=== PATIENT | female | born 1975 | race African-American/Black ===

== ENCOUNTER 2023-07-03 14:02 | Outpatient (AMB) | payer MEDICAID, SELFPAY ==
[2023-07-03 14:32] VITALS: BP 110/74; PULSE 89; O2SAT 99; BMI 27.3
--- NOTE | 2023-07-03 14:32 | HO.NEPHOV_ITS ---
HPI HPI Comments History of Present Illness Details Dori is a 48-year-old female with a history of TONI following ATN needing renal replacement therapy. Her last hemodialysis was last week of March 2021. She has been having headaches/migraine and has seen neurologist with multiple medication adjustments and minimal improvement. She was also thought to have pseudotumor cerebri and was on Diamox briefly. Her foot wounds have healed. She follows up with vascular surgeon Dr. Dallas in [facility]. She has lost a lot of weight. She is very concerned about her ongoing headaches. She denies chest pain, shortness of breath, vomiting, orthostatic symptoms, pedal edema or urinary symptoms. She avoids nonsteroidal anti-inflammatories and maintains good hydration. Her serum creatinine has been stable. [facility] Medical History (Updated 07/03/23 @ 14:59 by Esau Vaughn MD) History of hemodialysis Acute kidney injury Family History (Updated 07/03/23 @ 14:44 by Gloria Oates) Mother Diabetes Hypertension Social History (Updated 07/03/23 @ 14:42 by Gloria Oates) Alcohol intake: never Patient Tobacco Use Status: Never used Tobacco Vital Signs 07/03/23 14:32 Height 5 ft 5 in Weight 164 lb 2 oz BMI 27.3 BP 110/74 Blood Pressure Location Lt brachial Position Sitting Pulse 89 Pulse Source Pulse Oximeter Pulse Oximetry (%) 99 Oxygen Delivery Method Room Air Physical Exam Vital Signs: Last Vital Signs Pulse 89 07/03/23 14:32 BP 110/74 07/03/23 14:32 Pulse Ox 99 07/03/23 14:32 Oxygen Delivery Method Room Air 07/03/23 14:32 BMI result Body Mass Index 27.3 Const General: comfortable and no acute distress Orientation/consciousness: patient oriented x3 HEENT Head: Yes normocephalic Mouth: Normal oral and palatal mucosa present Eyes EOM: EOMs intact bilaterally Neck Neck: Yes supple Resp Auscultation: clear to auscultation bilaterally Cardio Jugular venous distension: no JVD Rate: regular rate GI Palpation (GI): Soft to palpation Auscultation: normal bowel sounds General: Yes no CVA tenderness Back/Spine/Pelvis Back: no CVA tenderness Skin General skin exam: no rashes or lesions noted Neuro General: patient oriented x3 and moves all extremities Extrem General: Yes no pedal edema Assessment & Plan Assessment & Plan (1) History of hemodialysis: Code(s): Z92.89 - Personal history of other medical treatment Plan Dori has history of tubular injury due to sepsis needing renal replacement therapy for some time. She recovered her renal functions and came off hemodialysis in March 2021. She had renal biopsy at that time which showed ATN. Her last serum creatinine is 1. She maintains good hydration. She avoids nonsteroidal anti-inflammatories. She has not a diabetic. She has known renal dietary restrictions. She is happy about her renal recovery but concerned about her ongoing headaches and wants a 2nd opinion about it. I did not make any medication changes today but addressed all her concerns and questions. She will be following up with me in 1 year with follow-up lab work for continued care. Orders: Orders Electrolytes 07/03/23 Z92.89 - Personal history of other medical treatment Protein Creatinine Ratio, Ur 07/03/23 Z92.89 - Personal history of other medical treatment Blood Urea Nitrogen 07/03/23 Z92.89 - Personal history of other medical treatment Creatinine 07/03/23 Z92.89 - Personal history of other medical treatment Coding Level of Care Code Est Pt Level 3 (09909) Diagnoses History of hemodialysis Z92.89 Results Reviewed Nephrology Results: No Data to Display
== END 2023-07-03 15:02 | disposition home or self-care (01) ==
PROVIDERS: PCP Internal Medicine; Visit Provider Internal Medicine Nephrology
DX: Z92.89 Personal history of other medical treatment (principal)
CPT/HCPCS: 99213

== ENCOUNTER → 2023-07-03 14:02 | Outpatient (BNVA) | payer MEDICAID, SELFPAY | PROVIDERS: PCP Internal Medicine; Visit Provider Internal Medicine Nephrology | DX: Z92.89 Personal history of other medical treatment (principal) | CPT/HCPCS: 99212 ==

== ENCOUNTER 2024-02-26 14:10 | Outpatient (AMB) | payer OTHER, MEDICAID, SELFPAY ==
--- NOTE | 2024-02-26 14:16 | HO.NEPHOV_ITS ---
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 This visit was by [employer] as she has COVID. Her last hemodialysis was last week of March 2021. She has been having headaches/migraine and has seen neurologist with multiple medication adjustments and minimal improvement. She was also thought to have pseudotumor cerebri and was on Diamox briefly. Her foot wounds have healed. She follows up with vascular surgeon Dr. Dallas in [facility]. She has lost a lot of weight. She denies chest pain, shortness of breath, vomiting, orthostatic symptoms, pedal edema or urinary symptoms. She avoids nonsteroidal anti-inflammatories and ma intains good hydration. Her last serum creatinine was 1.[address] [facility] Medical History (Updated 02/26/24 @ 14:40 by Esau Vaughn MD) History of hemodialysis Acute kidney injury Family History Mother Diabetes Hypertension Social History Alcohol intake: never Patient Tobacco Use Status: Never used Tobacco Review of Systems Const All systems reviewed & are unremarkable except as noted in HPI and below Telehealth Telehealth Telehealth Platform: Telephone Location of provider rendering services: practice address Location of patient: address on file Patient Identification confirmed using: Name, : Yes Telehealth method: voice only Patient verbally consented to treatment: Yes Patient verbally consented to billing insurance company: Yes Patient informed of any privacy concerns related to visit: No Minutes spent on Phone/Video with Pt.: 10 Results Reviewed Nephrology Results: No Data to Display Assessment & Plan Assessment & Plan (1) Acute kidney injury superimposed on CKD: Code(s): N17.9 - Acute kidney failure, unspecified; N18.9 - Chronic kidney disease, unspecified Category: Medical (2) History of hemodialysis: Code(s): Z92.89 - Personal history of other medical treatment Category: Medical Plan Dori has history of tubular injury due to sepsis needing renal replacement therapy for some time. She recovered her renal functions and came off hemodialysis in March 2021. She had renal biopsy at that time which showed ATN. Her last serum creatinine is 1.5. She likely had TONI from COVID with resultant rise in serum creatinine from baseline.. She maintains good hydra tion. She avoids nonsteroidal anti-inflammatories. She has not a diabetic. She has known renal dietary restrictions. I did not make any medication changes today but follow-up lab work. She will be following up with me in 3 months for continued care Orders: Orders Electrolytes 2 Months N17.9 - Acute kidney failure, unspecified, N18.9 - Chronic kidney disease, unspecified Creatinine 2 Months N17.9 - Acute kidney failure, unspecified, N18.9 - Chronic kidney disease, unspecified Blood Urea Nitrogen 2 Months N17.9 - Acute kidney failure, unspecified, N18.9 - Chronic kidney disease, unspecified Complete Blood Count Auto Diff 2 Months N17.9 - Acute kidney failure, unspecified, N18.9 - Chronic kidney disease, unspecified Coding Level of Care Code Tele Est Pt Level 4 (96101) Diagnoses Acute kidney injury superimposed on CKD N17.9; N18.9 History of hemodialysis Z92.89
== END 2024-02-26 15:05 | disposition home or self-care (01) ==
PROVIDERS: PCP Internal Medicine; Visit Provider Internal Medicine Nephrology
DX: N17.9 Acute kidney failure, unspecified (principal); N18.9 Chronic kidney disease, unspecified; Z92.89 Personal history of other medical treatment
CPT/HCPCS: 99441

== ENCOUNTER → 2024-02-26 14:10 | Outpatient (BNVA) | payer MEDICARE, OTHER, MEDICAID, SELFPAY | PROVIDERS: PCP Internal Medicine; Visit Provider Internal Medicine Nephrology ==

== ENCOUNTER 2024-05-27 14:01 | Outpatient (AMB) | payer MEDICARE, OTHER, MEDICAID, SELFPAY ==
--- NOTE | 2024-05-27 14:09 | HO.NEPHOV_ITS ---
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 This visit was by [employer] as she has COVID. Her last hemodialysis was last week of March 2021. She has been having headaches/migraine and has seen neurologist with multiple medication adjustments and minimal improvement. She was also thought to have pseudotumor cerebri and was on Diamox briefly. Her foot wounds have healed. She follows up with vascular surgeon Dr. Dallas in [facility]. She has lost a lot of weight. She denies chest pain, shortness of breath, vomiting, orthostatic symptoms, pedal edema or urinary symptoms. She avoids nonsteroidal anti-inflammatories and maintains good hydration. Her last serum creatinine had gone upto 1.5 recently but settled to baseline now [facility] Medical History (Updated 02/26/24 @ 14:40 by Esau Vaughn MD) History of hemodialysis Acute kidney injury Family History Mother Diabetes Hypertension Social History Alcohol intake: never Patient Tobacco Use Status: Never used Tobacco Review of Systems Const All systems reviewed & are unremarkable except as noted in HPI and below Telehealth Telehealth Telehealth Platform: Telephone Location of provider rendering services: practice address Location of patient: address on file Patient Identification confirmed using: Name, : Yes Telehealth method: voice only Patient verbally consented to treatment: Yes Patient verbally consented to billing insurance company: Yes Patient informed of any privacy concerns related to visit: No Minutes spent on Phone/Video with Pt.: 10 Results Reviewed Nephrology Results: No Data to Display Assessment & Plan Assessment & Plan (1) History of hemodialysis: Code(s): Z92.89 - Personal history of other medical treatment Category: Medical (2) Acute kidney injury superimposed on CKD: Code(s): N17.9 - Acute kidney failure, unspecified; N18.9 - Chronic kidney disease, unspecified Category: Medical Plan Zela has history of tubular injury due to sepsis needing renal replacement therapy for some time. She recovered her renal functions and came off hemodialysis in March 2021. She had renal biopsy at that time which showed ATN. She recently had a serum creatinine of 1.5 which is back to baseline now. She maintains good hydration. She avoids nonsteroidal anti-inflammatories. She has not a diabetic. She has no renal dietary restrictions. I did not make any medication changes today but follow-up lab work. She will be following up with me in one year for continued care Orders: Orders Protein Creatinine Ratio, Ur 1 Year Z92.89 - Personal history of other medical treatment Electrolytes 1 Year Z92.89 - Personal history of other medical treatment Blood Urea Nitrogen 1 Year Z92.89 - Personal history of other medical treatment Creatinine 1 Year Z92.89 - Personal history of other medical treatment Coding Level of Care Code Est Pt Level 4 (70316) Diagnoses History of hemodialysis Z92.89 Acute kidney injury superimposed on CKD N17.9; N18.9
== END 2024-05-27 14:38 | disposition home or self-care (01) ==
PROVIDERS: PCP Internal Medicine; Visit Provider Internal Medicine Nephrology
DX: Z92.89 Personal history of other medical treatment (principal); N17.9 Acute kidney failure, unspecified; N18.9 Chronic kidney disease, unspecified
CPT/HCPCS: 99214

== ENCOUNTER → 2024-05-27 14:01 | Outpatient (BNVA) | payer MEDICARE, OTHER, MEDICAID, SELFPAY | PROVIDERS: PCP Internal Medicine; Visit Provider Internal Medicine Nephrology | DX: N17.9 Acute kidney failure, unspecified (principal); N18.9 Chronic kidney disease, unspecified; Z92.89 Personal history of other medical treatment | CPT/HCPCS: 99212 ==

== ENCOUNTER 2024-12-23 15:34 | Outpatient (AMB) | payer MEDICARE, SELFPAY ==
--- OUTSIDE RECORDS SUMMARY | 2024-12-23 15:38 | XMS_ITS ---
Author Name Deandra Hurtado NP Address [address] [place] [address] Phone [phone] [facility] Care Team Providers Care Staff Home Therapy Rn Name Role Phone Deandra Hurtado Unavailable [phone] Unavailable Unavailable Unavailable Orders, [facility] Unavailable [phone] OLGA NOLAN Unavailable [phone] Reason for Referral Not Available Allergies, adverse reactions, alerts No known allergies History of medication use Medication Class Instructions Start Date End Date Naratriptan 2.5 mg Tab TAKE 1 TABLET BY MOUTH DAILY NEEDED FOR MIGRAINE HEADACHE. MAY REPEAT DOSE 1 TIME IN 4 HOURS 2023-05-06 No Data Available Dntdaylfif-PKRB-Igoayjll 50/325/40 mg Tab TAKE 1 TABLET BY MOUTH EVERY 6 HOURS NEEDED FOR MIGRAINE 2023-02-28 No Data Available Cyclobenzaprine 10 mg Tab TAKE 1 TABLET BY MOUTH EVERY 8 HOURS NEEDED 2022-08-16 No Data Available Diclofenac Sodium 1 % Gel APPLY TOPICALL Y FOUR TIMES DAILY NEEDED FOR SEVERE PAIN NOT TO EXCEED 16 GRAMS/ DAY/SINGLE JOINT OF LOWER EXTREMETIES 2022-09-05 No Data Available Eszopiclone 3 mg Tab TAKE 1 TABLET BY MO UTH AT BEDTIME NEEDED FOR INSOMNIA 2022-12-09 No Data Available Gabapentin 300 mg Cap TAKE 1 CAPSULE BY MOUTH THREE TIMES DAILY 2023-01-20 No Data Available Amoxicillin-Pot Clavulanate 875/125 mg Tab TAKE 1 TABLET BY MOUTH EVERY 12 HOURS FOR 7 DAYS 2023-06-04 No Data Available Docusate Sodium 100 mg Cap TAKE 1 CAPSUL E BY MOUTH TWICE DAILY NEEDED CONSTIPATION 2023-06-04 No Data Available acetaZOLAMIDE 250 mg Tab TAKE 1 TABLET B Y MOUTH TWICE DAILY 2022-11-12 No Data Available Folic Acid 1 mg Tab TAKE 1 TABLET BY CHRIS TH DAILY 2022-11-12 No Data Available Pantoprazole Sodium 40 mg Ta b delayed rel TAKE 1 TABLET BY MOUTH DAILY 2022-11-12 No Data Available levETIRAcetam 1000 mg Tab TAKE 1 TABLET BY MOUTH TWICE DAILY 2022-09-13 No Data Available Cetirizine 10 mg Tab TAKE 1 TABLET BY MO UTH DAILY 2023-01-07 No Data Available Chlorhexidine Gluconate 0.12 % Solution SWISH AND SPIT A CAPFUL BY MOUTH 3-4 TIMES A DAY A MOUTHWASH DO NOT SWALLOW 2023-06-26 No Data Available Nystatin 041059 UNIT/GM Crm APPLY TOPICA LLY TO THE AFFECTED AREA TWICE DAILY 2023-02-03 No Data Available Spiriva Respimat 1.25 MCG/AC T Aerosol Solution INHALE 2 INHALATIONS BY MOUTH EVERY DAY 2022-12-09 No Data Available Topiramate 200 mg Tab TAKE 1 TABLET BY M OUTH TWICE DAILY 2022-08-16 No Data Available Albuterol Sulfate HFA 108 (9 0 Base) MCG/ACT Aerosol Solution INHALE 2 PUFFS BY MOUTH EVERY 6 HOURS NEEDED 2023-08-25 No Data Available Senna 8.6 mg Tab TAKE 1 TABLET BY CHRIS TH AT BEDTIME NEEDED FOR CONSTIPATION 2023-06-04 No Data Available Cyclobenzaprine 10 mg Tab 1 tablet orall y TID PRN muscle spasm 2023-10-28 No Data Available Chlorhexidine Gluconate 0.12 % Solution Mouth/Throat 15 ML swish and spit daily 2023-10-28 No Data Seema ilable Fioricet 50/300/40 mg Cap 1-2 capsules o rally 3 times per day every 4 hours as needed max 6 tabs QD 2023-10-28 No Data Available Diclofenac Sodium 1 % Gel 4 grams topica lly to affected area 4 times per day PRN 2023-10-28 No Data Available Nystatin 738736 UNIT/GM Crm 1 applicatio n topically to affected area PRN 2023-10-28 No Data Available Ibuprofen 200 mg Tab 1-2 tabs every 8 ho urs prn pain 2023-12-03 No Data Available Problem List Problem Status Onset Date Resolved Date Synopsis Seizure disorder Active 2023-10-27 N/A Chiqui & Giwitching neurologist due to insurance change, last visit 3 months. Usually every 3 months see is seen. June 2023 last seizureHas grand mal seziures Pseudotumor cerebri Active 2023-10-27 N/A Aceta zolamideFollows with neuro & ophthalmology (annually)Controls weight Migraine Active 2023-10-27 N/A Topirimate, [place] N fiorcet, PRN naratriptanFollows with neurologyMigraines occur daily- aura- front part of head feels like a knot/pressure. 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 N/A Follows with hem atology- 2x yearly PCP also follows Left ovarian cyst Active 2023-10-28 N/A Is bein g monitored Hyperthyroidism Active 2023-10-28 N/A Fluctuate s between hyper and hypo thryoid Monitoring with labworkPer patient it is uncertain what is happening with her thyroid PVD (peripheral vascular disease) Active 2023-10-28 N/A Follows with vas cular History of DVT (deep vein thrombosis) Active 2023-10-28 N/A Has been on etienne enox previously Is not taking any anticoagulants currently Neuropathy Active 2023-10-28 N/A Of left footTa kes gabapentin Causes issues with walking and has contributed to fall Occasionally skin breaks open. GERD (gastroesophageal reflux disease) Active 2023-10-28 N/A Taking PPIRecomm end medication compliance. Measures to improve GERD management like avoiding large meals. Avoid food triggers to include spicy/acidic foods, fried foods, alcohol, caffeine, peppermint, and chocolate. CKD (chronic kidney disease) stage 2, GFR 60-89 Active 2023-10-27 N/A TONI following AT N needing HD until last week of March 2021 Follows with nephrology 3x yearly Last GFR found 63 in 2022, lowest found was 9 History of falling Active 2023-10-28 N/A Left f oot numb- fall riskRecommend measures to reduce falls. Use ambulatory aid if indicated. Change positions slowly. Avoid low lit rooms and remove potential trip hazards. Constipation Active 2023-10-28 N/A Senna & docu sateRecommend adequate dietary fiber and water intake Other problems related to medical facilities and other health care Active 2023-10-28 N/A CONTING ENCY PLAN FALLMember to call for the following symptoms: Fall / Feeling weak Planned intervention: Encourage extra fluid intake / Assess for change in mental status and provide reassurance if none (patient's Baseline is A&Ox3) / Review importance of sitting for two to three minutes prior to standing after laying down acquired Amputation of toe of left foot Active 2023-10-28 N/A 4th & 5th toes auto-amputated themselves Uncertain of reason- believes autoimmune hemolytic anemia played a cause. Foot turned black and toes fell off. Follows with vascular- 3x yearly De Quervain's tenosynovitis, left Active 2023-12-03 N/A please apply small amount of diclofenac to the area qid, you can take Ibuprofen 1 tab every 8 hoursrests your hand today , use a brace when you receive itapply ice for 20 min and then a warm compress for 20 min throughout the day Encounters Encounters Type Facility Date of Service Diagnosis/Co mplaint New patient,40-59min; chronic exacerbation, 2 stable chronic or 1 acute illness add add modifier 95 for video (do not use for phone, instead use [id number]) [facility] ([place]) 10[place]28/2023 Epilepsy, unspecified, not intractable, without status epilepticusChronic kidney disease, stage 2 (mild)Migraine, unspecified, not intractable, without status migrainosusBenign intracranial hypertensionUnspecified asthma, uncomplicatedPolyneuropathy, unspecifiedAutoimmune hemolytic anemia, unspecifiedUnspecified ovarian cyst, left sideThyrotoxicosis, unspecified without thyrotoxic crisis or stormPeripheral vascular disease, unspecifiedPersonal history of other venous thrombosis and embolismHistory of fallingOther problems related to medical facilities and other health careAcquired absence of other left toe(s)Constipation, unspecifiedGastro-esophageal reflux disease without esophagitis New patient,40-59min; chronic exacerbation, 2 stable chronic or 1 acute illness add add modifier 95 for video (do not use for phone, instead use [id number]) [facility], ([place]) 10/28/2023 New patient,40-59min; chronic exacerbation, 2 stable chronic or 1 acute illness add add modifier 95 for video (do not use for phone, instead use [id number]) [facility] [place] 10[place]28/20[place] New patient,40-59min; chronic exacerbation, 2 stable chronic or 1 acute illness add add modifier 95 for video (do not use for phone, instead use [id number]) [facility] [place]28/20[place] New patient,40-59min; chronic exacerbation, 2 stable chronic or 1 acute illness add add modifier 95 for video (do not use for phone, instead use [id number]) [facility] [place] 10[place]28/2023 New patient,40-59min; chronic exacerbation, 2 stable chronic or 1 acute illness add add modifier 95 for video (do not use for phone, instead use [id number]) [facility] [place] 10[place]28/20[place] New patient,40-59min; chronic exacerbation, 2 stable chronic or 1 acute illness add add modifier 95 for video (do not use for phone, instead use [id number]) [facility] [place] New patient,40-59min; chronic exacerbation, 2 stable chronic or 1 acute illness add add modifier 95 for video (do not use for phone, instead use [id number]) [facility] [place] 10[place]28/2023 No Data Available [facility] [place] 12[place]03/2023 Epilepsy, unspecified, not intractable, without status epilepticusChronic kidney disease, stage 2 (mild)Migraine, unspecified, not intractable, without status migrainosusBenign intracranial hypertensionUnspecified asthma, uncomplicatedPolyneuropathy, unspecifiedAutoimmune hemolytic anemia, unspecifiedUnspecified ovarian cyst, left sideThyrotoxicosis, unspecified without thyrotoxic crisis or stormPeripheral vascular disease, unspecifiedPersonal history of other venous thrombosis and embolismHistory of fallingConstipation, unspecifiedRadial styloid tenosynovitis [de quervain] No Data Available [facility] ([place]) 12/03/2023 No Data Available [facility] ([place] 12/03/2023 No Data Available [facility] ([place]) 12/03/2023 No Data Available [facility] ([place]) 12/03/2023 Vital Signs Date of Collection Vitals 2023-10-28 09:57:48 Height - 165.1 cmWei ght - 68.04 kgBody Mass Index (BMI) - 24.96 kg/m2Pain Scale - 8.0 {score} 2023-12-03 06:11:43 Weight - 68.95 kgBod y Mass Index (BMI) - 25.29 kg/m2Pain Scale - 5.0 {score} Social History Social History Social History Observation Description Effec tive Time Current Smoking Status Never smoker 2024-12-14 0 Sex Female History of Procedures Procedures Service Procedure code Service date Servicing provider Phone# New patient,40-59min; chronic exacerbation, 2 stable chronic or 1 acute illness add add modifier 95 for video (do not use for phone, instead use [id number]) 04895 2023-10-28 No Data Available No Data Availa ble Medication List Documented (1159F) 1159F 2023-10-28 No Data Available No Data Seema ilable Medication Review by prescribing provider or pharmacist documented (1160F) 1160F 2023-10-28 No Data Available No Data Seema ilable Advance Care Directive Advance care planning discussion documented in the medical record (1158F) 1158F 2023-10-28 No Data Available No Data Availa ble BMI obtained (3008F) 3008F 2023-10-28 No Data Availab le No Data Available Advance care planning discussed and documented advance care plan or surrogate decision-maker was documented in the medical record. (1123F) 1123F 2023-10-28 No Data Available No Data Availa ble Pain Assessment - Pain Documented on a Pain Scale (1125F) 1125F 2023-10-28 No Data Available No Data Seema ilable Functional Status Assessed (1170F) 1170F 2023-10-28 No Data Available No Data Avail able No Data Available 11697 2023-12-03 No Data Available No Data Available Pain Assessment - Pain Documented on a Pain Scale (1125F) 1125F 2023-12-03 No Data Available No Data Seema ilable Medication List Documented (1159F) 1159F 2023-12-03 No Data Available No Data Seema ilable Functional Status Assessed (1170F) 1170F 2023-12-03 No Data Available No Data Avail able BMI obtained (3008F) 3008F 2023-12-03 No Data Availab le No Data Available Functional Status Functional Category Effective Dates Cognition Status: Oriented to Person, Pl toby and Time 2023-10-28 ADL: Bathing Needs Assistanc e , Dressing Independent , Eating Independent , Ambulation Independent , Transferring Independent and Toileting Independent 2023-10-28 IADL: Medication Independent , Meal Prep Needs Assistance , Shopping Needs Assistance , Driving or Public Transport Needs Assistance and Housework Needs Assistance 2023-10-28 Falls in last 6 Months: Yes x 2 Mental Status Status Date Cognition Status: Oriented to Person, Pl toby and Time 2023-10-28 Assessments Date of Service Assessments 2023-10-28 09:57:48 Other problems relat ed to medical facilities and other health careSeizure disorderCKD (chronic kidney disease) stage 2, GFR 60-89MigrainePseudotumor cerebriAsthmaAmputation of toe of left footNeuropathyAutoimmune hemolytic anemiaLeft ovarian cystHyperthyroidismPVD (peripheral vascular disease)History of DVT (deep vein thrombosis)History of fallingConstipationGERD (gastroesophageal reflux disease) 2023-12-03 06:11:43 Other problems relat ed to medical facilities and other health careSeizure disorderCKD (chronic kidney disease) stage 2, GFR 60-89MigrainePseudotumor cerebriAsthmaacquired Amputation of toe of left footNeuropathyAutoimmune hemolytic anemiaLeft ovarian cystHyperthyroidismPVD (peripheral vascular disease)History of DVT (deep vein thrombosis)History of fallingConstipationGERD (gastroesophageal reflux disease)De Quervain's tenosynovitis, left Plan of Care Date of Service Plans 2023-10-28 09:57:48 Medication Review by prescribing provider or pharmacist documented (1160F)Medication List Documented (1159F)Functional Status Assessed (1170F)Advance Care Directive Advance care planning discussion documented in the medical record (1158F)BMI obtained (3008F)Pain Assessment - Pain Documented (1125F)Televideo new patient,40-59min; chronic exacerbation, 2 stable chronic or 1 acute illness add modifier 95Advance care planning discussed and documented advance care plan or surrogate decision-maker was documented in the medical record. (1123F)Continue to see PCP. Follow-up with [facility] as needed for any acute or disease education needs that may arise. At least 50% of time spent counseling patient, discussing diagnosis, treatment plan, compliance, and coordinating followup care. Continue taking medications as directed and keep all follow up appointments with established PCP and any specialists.CONTINGENCY PLAN FALLMember to call for the following symptoms: Fall / Feeling weak Planned intervention: Encourage extra fluid intake / Assess for change in mental status and provide reassurance if none (patient's Baseline is A&Ox3) / Review importance of sitting for two to three minutes prior to standing after laying downKeppra & topirimateSwitching neurologist due to insurance change, last visit 3 months. Usually every 3 months see is seen. June 2023 last seizureHas grand mal seziuresAKI following [facility] needing HD until last week of March 2021 Follows with nephrology 3x yearly Last GFR found 63 in 2022, lowest found was 9Topirimate, PRN fiorcet, PRN naratriptanFollows with neurologyMigraines occur daily- aura- front part of head feels like a knot/pressure.AcetazolamideFollows with neuro & ophthalmology (annually)Controls weightSpiriva daily, albuterol PRNClaritinUsually using albuterol 2-3 times daily during October & November due to allergens PCP followingAvoid allergens as utzi7xp & 5th toes auto-amputated themselves Uncertain of reason- believes autoimmune hemolytic anemia played a cause. Foot turned black and toes fell off. Follows with vascular- 3x yearlyOf left footTakes gabapentin Causes issues with walking and has contributed to fall Occasionally skin breaks open.Follows with hematology- 2x yearly PCP also followsIs being monitoredFluctuates between hyper and hypo thryoid Monitoring with labworkPer patient it is uncertain what is happening with her thyroidFollows with vascularHas been on lovenox previously Is not taking any anticoagulants currentlyLeft foot numb- fall riskRecommend measures to reduce falls. Use ambulatory aid if indicated. Change positions slowly. Avoid low lit rooms and remove potential trip hazards.Senna & docusateRecommend adequate dietary fiber and water intakeTaking PPIRecommend medication compliance. Measures to improve GERD management like avoiding large meals. Avoid food triggers to include spicy/acidic foods, fried foods, alcohol, caffeine, peppermint, and chocolate. 2023-12-03 06:11:43 Phone (patient, pare nt, or guardian); 5-10 minutes of medical discussion (no modifier 95)Continue to see PCP. Follow-up with [facility] as needed for any acute or disease education needs that may arise 06/01.CONTINGENCY PLAN FALLMember to call for the following symptoms: Fall / Feeling weak Planned intervention: Encourage extra fluid intake / Assess for change in mental status and provide reassurance if none (patient's Baseline is A&Ox3) / Review importance of sitting for two to three minutes prior to standing after laying downKeppra & topirimateSwitching neurologist due to insurance change, last visit 3 months. Usually every 3 months see is seen. June 2023 last seizureHas grand mal seziuresAKI following [facility] needing HD until last week of March 2021 Follows with nephrology 3x yearly Last GFR found 63 in 2022, lowest found was 9Topirimate, PRN fiorcet, PRN naratriptanFollows with neurologyMigraines occur daily- aura- front part of head feels like a knot/pressure.AcetazolamideFollows with neuro & ophthalmology (annually)Controls weightSpiriva daily, albuterol PRNClaritinUsually using albuterol 2-3 times daily during October & November due to allergens PCP followingAvoid allergens as [id number] & 5th toes auto-amputated themselves Uncertain of reason- believes autoimmune hemolytic anemia played a cause. Foot turned black and toes fell off. Follows with vascular- 3x yearlyOf left footTakes gabapentin Causes issues with walking and has contributed to fall Occasionally skin breaks open.Follows with hematology- 2x yearly PCP also followsIs being monitoredFluctuates between hyper and hypo thryoid Monitoring with labworkPer patient it is uncertain what is happening with her thyroidFollows with vascularHas been on lovenox previously Is not taking any anticoagulants currentlyLeft foot numb- fall riskRecommend measures to reduce falls. Use ambulatory aid if indicated. Change positions slowly. Avoid low lit rooms and remove potential trip hazards.Senna & docusateRecommend adequate dietary fiber and water intakeTaking PPIRecommend medication compliance. Measures to improve GERD management like avoiding large meals. Avoid food triggers to include spicy/acidic foods, fried foods, alcohol, caffeine, peppermint, and chocolate.please apply small amount of diclofenac to the area qid, you can take Ibuprofen 1 tab every 8 hoursrests your hand today , use a brace when you receive itapply ice for 20 min and then a warm compress for 20 min throughout the day Health Concerns Date Concern 2023-12-03 Visit completed via audio by telephone. Patient/Guardian agreed to visit via telehealth.Time spent in visit: 9 min 2023-12-03 Today, patient has c hief complaint of: left hand pain thumb toSummary of acute complaint: pt reports pain left thumb to writs aching, shooting pain with some numbness. 2023-12-03 Most recent hospital stay(s) or ER visit(s) and precipitating factors: denies er visit
--- OUTSIDE RECORDS SUMMARY | 2024-12-23 15:38 | XMS_ITS | Encounter Summary ---
Author Organization [facility] Address [address] [place] [address] Care Team Providers Care Director Market Research Name Role Phone Consuelo Sousa MD Primary Care Provider [phone] Encounter Details Date Type Department Care Team (Late st Contact Info) Description 01/11/2020 Scanned Document [facility] [address] [facility] [address] [place] [address] Provider, Chun, [address] [place] [id number] Social History Tobacco Use Types Packs/Day Years Used Date Smoking Tobacco: Never Smokeless Tobacco: Never Alcohol Use Standard Drinks/Week Comments No 0 (1 standard drink = 0.6 oz pur e alcohol) AUDIT-C Answer Date Recorded Frequency of Alcohol Consumption Never 01/26/2018 Average Number of Drinks Not on file 018 Frequency of Binge Drinking Not on file 01/14 Comments No Sex and Gender Information Value Date Recorded Sex Assigned at Not on file Legal Sex Female 3:54 PM EDT Gender Identity Not on file Sexual Orientation Not on file COVID-19 Exposure Response Date Recorded In the last month, have you been in contact with someone who was confirmed or suspected to have Coronavirus / COVID-19? No / Unsure 01/10/2020 3:11 PM EDT documented as of this encounter Plan of Treatment Not on file documented as of this encounter Visit Diagnoses Not on filedocumented in this encounter Care Teams Director Market Research Relationship Specialty Start Date End Date Consuelo Sousa MD [address] [address] PCP - General Family Medicine 01/26/18 documented as of this encounter
--- OUTSIDE RECORDS SUMMARY | 2024-12-23 15:38 | XMS_ITS | Clinical Summary ---
Author Organization [facility] Address [address] [place] [address] Care Team Providers Care Medicaid Service Coordinator Name Role Phone Consuelo Sousa MD Primary Care Provider [phone] Allergies No known active allergies Medications Medication Sig Dispensed Refills Start Date End Date Status topiramate (TOPAMAX) 200 MG tablet Take 200 mg by mouth 2 (two) times a day. 0 Active ALBUTEROL SULFATE IN Inhale into the lungs continuous prn. 0 Active folic acid (FOLVITE) tablet 1 mg Take 1 tablet (1 mg total) by mouth daily. 30 tablet 0 03/02/2021 Active levETIRAcetam (KEPPRA) 1000 MG tablet Take 1 tablet (1,000 mg total) by mouth every evening. 60 tablet 0 03/02/2021 Active melatonin 3 MG TABS tablet Take 1 tablet (3 mg total) by mouth every night at bedtime. 30 tablet 0 03/02/2021 Active Multiple Vitamins-Minerals (Thera M Plus) TABS tablet Take 1 tablet by mouth daily. 30 tablet 0 03/02/2021 Active pantoprazole (PROTONIX) 40 MG tablet Take 1 tablet (40 mg total) by mouth every morning on an empty stomach. 30 tablet 0 03/03/2021 Active vitamin D3 (VITAMIN D3) 10 MCG (400 UNIT) tablet Take 1 tablet (400 Units total) by mouth daily. 150 tablet 0 03/02/2021 Active senna (SENOKOT) 8.6 MG tablet Take 1 tablet by mouth 2 (two) times a day. 14 tablet 0 03/05/2021 Active polyethylene glycol (MIRALAX) 17 g packet Take 17 g by mouth daily. 14 each 0 03/05/2021 Active HYDROmorphone (DILAUDID) 4 MG tablet 0 04/08/2021 Active fluticasone (FLOVENT DISKUS) 50 MCG/BLIST diskus inhaler Inhale 1 puff into the lungs. 0 Active docusate sodium (COLACE) 100 MG capsule 0 03/22/2021 Active gabapentin (NEURONTIN) 300 MG capsule Take 300 mg by mouth 3 (three) times a day. 0 06/19/2021 Active butalbital-aspirin- caffeine (FIORINAL) 50-325-40 MG capsule Take 1 capsule by mouth every 4 (four) hours as needed for migraine. 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 Hyperkalemia 03/24/2021 Acute renal failure syndrome 03/24/2021 Shock 02/18/2021 TONI (acute kidney injury) 02/17/2021 Morbid obesity 04/13/2020 Social History Tobacco Use Types Packs/Day Years Used Date Smoking Tobacco: Never Smokeless Tobacco: Never Alcohol Use Standard Drinks/Week Comments No 0 (1 standard drink = 0.6 oz pur e alcohol) Sex and Gender Information Value Date Recorded Sex Assigned at Female 04/12/2020 1:51 PM EDT Gender Identity Not on file Sexual Orientation Not on file Job Start Date Occupation Industry Not on file Not on file Not on file Last Filed Vital Signs Vital Sign Reading Time Taken Comments Blood Pressure 129/84 09/20/2021 1:41 PM EDT Pulse 77 09/20/2021 1:41 PM EDT Temperature 36.2 C (97.1 F) 09/20/2021 1:41 PM EDT Respiratory Rate 17 07/09/2021 2:11 PM EST Oxygen Saturation 100% 09/20/2021 1:41 PM EDT Inhaled Oxygen Concentration - - Weight 79.4 kg (175 lb) 09/20/2021 1:41 PM EDT Height 167.6 cm (5' 6 ) 09/20/2021 1:41 PM EDT Body Mass Index 28.25 09/20/2021 1:41 PM EDT Plan of Treatment Health Maintenance Due Date Last Done Comments Hepatitis B Vaccines (1 of 3 - 3-dose series) 1975 Depression Screening 1987 Preventative Health Evaluation 1993 Cervical Cancer Screening (Pap Smear) 02/08/1996 DTap / Tdap / Td (2 - Td or Tdap) 02/16/2018 02/17/2008 Colon Cancer Screening (Colonoscopy) 02/08/2020 BMI Counseling 07/09/2022 07/09/2021, 06/16, 06/11/2021, Additional history exists COVID-19 Vaccine ( season) 2024 09/22/2020, 09/01/2020 Influenza Vaccine (#1) 2025 05/09/2012 Pneumococcal Vaccine Aged Out 05/09/2012 No long er eligible based on patient's age to complete this topic Hepatitis C Screening Completed 02/21/2021, 021 RSV Ped < 20 months Aged Out No longe r eligible based on patient's age to complete this topic Advance Directives For more information, please contact: [phone] Latest Code Status on File Code Status Date Activated Date Inactivated Comments Full Code 02/17/2021 7:15 AM 03/07/2021 2:26 AM This c ode status was ascertained in the following way: discussion with next-of-kin, specifically I spoke to the patient's parent . Code Status History Code Status Date Activated Date Inactivated Comments Full Code 04/12/2020 5:02 PM 04/15/2020 10:56 PM Th is code status was ascertained in the following way: discussion with patient . Care Teams Medicaid Service Coordinator Relationship Specialty Start Date End Date Consuelo Sousa MD [address] [place] [id number] PCP - General Internal Medicine 11/19/21
--- OUTSIDE RECORDS SUMMARY | 2024-12-23 15:38 | XMS_ITS | Data Portability ---
Author Organization [facility], [address] Address [address] [place] [address] Assessment No assessment recorded. Plan of Treatment Reminders Order Date Submit Date Provider Last Modified By Organization Details Last Modified Time Details Appointments None record ed. Lab None record ed. Referral None record ed. Procedures None record ed. Surgeries None record ed. Imaging None record ed. Medication Orders None record ed. Patient TargetsNo targets recorded. Patient InstructionsNo instructions recorded. Reason for Referral None Reported. Medical Equipment None Reported. Medications Name Sig Start Date Stop Date Status Note LastModified by Organization Details LastModified Time diclofenac 3% / baclofen 2% / gabapentin 6% / bupivacaine hcl 1% APPLY 1-3 GRAMS TO THE AFFECTED AREA 3-4 TIMES DAILY (RIGHT FOOT) active Not Available Not Available No t Available cyclobenzapr ine 10 mg tablet TAKE 1 TABLET BY MOUTH EVERY 8 HOURS NEEDED active Not Available Not Available No t Available prednisone 10 mg tablet TAKE 2 TABLET BY MOUTH TWICE DAILY DIRECTED active Not Available Not Available No t Available cetirizine 10 mg tablet TAKE 1 TABLET BY MOUTH EVERY DAY active Not Available Not Available No t Available fluconazole 150 mg tablet TAKE 1 TABLET BY MOUTH ONCE active Not Available Not Available N ot Available prednisone 5 mg tablet TAKE 1 TABLET BY MOUTH EVERY DAY active Not Available Not Available No t Available acetazolamid e 250 mg tablet TAKE 1 TABLET BY MOUTH TWICE DAILY active Not Available Not Available No t Available penicillin V potassium 500 mg tablet TAKE 1 TABLET BY MOUTH EVERY 12 HOURS FOR 10 DAYS active Not Available Not Available Not Available melatonin 3 mg tablet TAKE 1 TABLET BY MOUTH AT BEDTIME FOR 30 DAYS active Not Available Not Available No t Available butalbital-a cetaminophen -caffeine 50 mg-325 mg-40 mg tablet TAKE 1 TABLET BY MOUTH EVERY 6 HOURS FOR 30 DAYS active Not Available Not Available No t Available hydromorphon e 2 mg tablet TAKE 2 TABLETS BY MOUTH EVERY 4 HOURS NEEDED FOR PAIN active Not Available Not Available No t Available docusate sodium 100 mg capsule TAKE 1 CAPSULE BY MOUTH TWICE A DAY NEEDED CONSTIPATIO N [id number] active Not Available Not Available No t Available gabapentin 300 mg capsule TAKE 1 CAPSULE BY MOUTH THREE TIMES DAILY active Not Available Not Available Not Available topiramate 200 mg tablet TAKE 1 TABLET BY MOUTH TWICE DAILY active Not Available Not Available No t Available gabapentin 100 mg capsule TAKE 4 CAPSULES BY MOUTH THREE TIMES DAILY active Not Available Not Available Not Available levofloxacin 500 mg tablet TAKE 1 TABLET BY MOUTH EVERY DAY FOR 10 DAYS active Not Available Not Available No t Available hydromorphon e 4 mg tablet TAKE 1 TABLET BY MOUTH EVERY 8 HOURS TAKE 1 TABLET BY MOUTH EVERY 8 HOURS NEEDED FOR PAIN active Not Available Not Available No t Available fluticasone propionate 50 mcg/actuatio n nasal spray,suspen sarah SHAKE LIQUID AND USE 2 SPRAYS IN EACH NOSTRIL EVERY DAY active Not Available Not Available No t Available amoxicillin 875 mg-potassium clavulanate 125 mg tablet TAKE 1 TABLET BY MOUTH EVERY 12 HOURS FOR 10 DAYS active Not Available Not Available Not Available topiramate 50 mg tablet TAKE 4 TABLET BY MOUTH IN MORNING AND 3 TABLET IN EVENING FOR 2 WEEKS THEN 3 TABLET TWICE DAILY active Not Available Not Available Not Available eszopiclone 3 mg tablet TAKE 1 TABLET BY MOUTH EVERY DAY AT BEDTIME active Not Available Not Available No t Available Flovent HFA 220 mcg/actuatio n aerosol inhaler INHALE 1 PUFF BY MOUTH TWICE DAILY DIRECTED active Not Available Not Available No t Available levetiraceta m 1,000 mg tablet TAKE 1 TABLET BY MOUTH TWICE DAILY active Not Available Not Available No t Available Vitals None Recorded Social History None recorded. Functional Status None recorded. Mental Status None recorded. Family History Nothing Reported. Medical History No medical history recorded. Gynecological HistoryNo gynecological history recorded. Obstetrics History GPAL:G 0 P 0 0 0 0 Past Encounters Encounter ID Performer Location Encounter Start Date Encounter Closed Date Diagnosis/Indication Diagnosis SNOMED-CT Code Diagnosis ICD10 Code Diagnosis Note [id number] [place] [address] 01/14/2018 15:04:19 01/14/2018 16:58:32 Health Concerns Section Related Observation LastModified by Organization Detai ls LastModified Time None Recorded Concern Status LastModified by Organization Details LastModified Time None Recorded Advance Directives Directive None Recorded Payers Insurance Date Sequence Insurance Name Policy Number Policy Faith Covered Member ID Faith Member ID Guarantor Name 07/25/2022 1 [facility] [id number] Dori Cr [id number] Dori Cr 07/25/2022 1 [place] [facility] Dori Cr [id number] Dori Cr OBGyn Episode No OBEpisode recorded.
--- OUTSIDE RECORDS SUMMARY | 2024-12-23 15:39 | XMS_ITS | Patient Health Record ---
[facility] Address [address] [place] [address] Care Team Providers Care Community Relations Police Lieutenant Name Role Phone Consuelo Sousa MD Primary Care Provider Magan Waters Unavailable [phone] Allergies No Known Allergies Reason For Referral No Information Medications Medication SIG (Take, Route, Frequency, Duration) Notes Start Date End Date Status Pantoprazole Sodium 40 MG 1 tablet Orall y Once a day; Duration: 30 day(s) Active Prednisone 1 tab Oral; Duration : 14 days Active Melatonin 3 MG 1 tablet at bedtime as needed Orally Once a day; Duration: 30 day(s) Active Multivitamin - 1 tablet Orally Once a day; Duration: 30 day(s) Active Sennosides Not-Takin g Topiramate Active Acetaminophen 325 MG/10.15ML as directed Orally Active Cholecalciferol 100 MCG (4000 UT) as directed Orally Active Gabapentin 100 MG 1 capsule Orally Onc e a day; Duration: 30 day(s) Active levETIRAcetam 1000 MG 1 tablet Orally ev duarte 12 hrs; Duration: 30 day(s) Active Docusate Sodium 100 MG 1 capsule as need ed Orally Once a day; Duration: 30 day(s) Active Folic Acid 1 MG 1 tablet Orally Once a day; Duration: 30 day(s) Active AFO-fixed . 1 . Wear daily; Duration: . 09/13/2022 Active Social History Tobacco Use: Social History Observation Description Date Details (start date - stop date) Never Smoker NA - NA Tobacco Use/Smoking Question Answer Notes Are you a: nonsmoker Additional Findings: Tobacco Non-User Current no n-smoker Alcohol Screen Question Answer Notes Did you have a drink containing alcohol in the p ast year? No Points 0 Interpretation Negative Tobacco use other than smoking: Question Answer Notes Are you an other tobacco user? No Problems Problem Type SNOMED Code ICD Code Onset Dates Problem Status W/U Status Risk Notes Problem Ataxic gait (11975345) Ataxic gait (R26.0) Active confirmed Problem Gangrene (I96) Active confirmed Plan Of Treatment No Information Medical (General) History Medical History History ICD Code Anemia asthma Headaches/Migraines Measles Seizures Warm autoimmune hemolytic anemia Kidney disease Surgical History Surgery Date(Month/Year) Hospitalization History Reason Date(Month/Year) [facility]- seizure 08/09/22 [place], unresponsive, seizure 021
--- OUTSIDE RECORDS SUMMARY | 2024-12-23 15:39 | XMS_ITS | Clinical Summary ---
Author Organization [facility] [address] [facility] Building Address [address] [place] [address] Phone Care Team Providers Care Medication Nurse Name Role Phone Samantha Ramirez DO Primary Care Pro vider Allergies No known active allergies Medications ALBUTEROL INHL Inhale into the lungs. Active zolpidem (Ambien) 5 mg tablet Take 1 tablet (5 mg total) by mouth 1 (one) time each day. 9 Active norethindrone (ORTHO MICRONOR ORAL) 1 TABLET DAILY Activ e butalbital-acet aminophen-caffe ine (FIORICET, ESGIC) 50-325-40 mg per tablet TAKE 1 TABLET BY MOUTH EVERY 6 HOURS NEEDED FOR MIGRAINE 5 Active cetirizine (ZyrTEC) 10 mg tablet 5 Active chlorhexidine (PERIDEX) 0.12 % solution SWISH AND SPIT A CAPFUL BY MOUTH 3-4 TIMES A DAY A MOUTHWASH DO NOT SWALLOW 4 Active cyclobenzaprine (FLEXERIL) 10 mg tablet 5 Active diclofenac (VOLTAREN) 1 % topical gel APPLY 4 GRAMS TOPICALLY TO THE AFFECTED AREA FOUR TIMES DAILY NEEDED 4 Active docusate sodium (COLACE) 100 mg capsule 5 Active fluticasone propionate (FLOVENT DISKUS) 50 mcg/actuation diskus inhaler Inhale 1 puff by mouth. Active folic acid (FOLVITE) 1 mg tablet 5 Active gabapentin (NEURONTIN) 300 mg capsule Take 2 capsules (600 mg total) by mouth 3 (three) times a day. 4 Active levETIRAcetam (KEPPRA) 1,000 mg tablet 4 Active naratriptan (AMERGE) 2.5 mg tablet TAKE 1 TABLET BY MOUTH DAILY NEEDED FOR MIGRAINE HEADACHE. MAY REPEAT DOSE 1 TIME IN 4 HOURS 4 Active nystatin (MYCOSTATIN) cream Apply 1 Application topically 2 (two) times a day. apply to the affected area(s) 4 Active pantoprazole (PROTONIX) 40 mg EC tablet 2 (two) times a day. 5 Active senna 8.6 mg tablet every other day. 5 Active Spiriva Respimat 1.25 mcg/actuation inhalation spray 4 Active topiramate (TOPAMAX) 200 mg tablet Take 1 tablet (200 mg total) by mouth. Active acetaminophen (TylenoL) 325 mg capsule Take by mouth every 6 (six) hours if needed for mild pain. Active cholecalciferol (VITAMIN D-3) 50 mcg (2,000 unit) tablet Take 1 tablet (2,000 Units total) by mouth 1 (one) time each day. Active multivitamin tablet Take 1 tablet by mouth 1 (one) time each day. Active melatonin 3 mg tablet Take by mouth. Activ e HYDROmorphone (DILAUDID) 4 mg tablet Take by mouth. Activ e acetaZOLAMIDE (DIAMOX) 250 mg tablet Take 1 tablet (250 mg total) by mouth 2 (two) times a day. Active eszopiclone (LUNESTA) 3 mg tablet Take 1 tablet (3 mg total) by mouth at bedtime. Take immediately before bedtime Active polyethylene glycol (Golytely) 236-22.74-6.74 -5.86 gram solution Take 4L by mouth once for one dose. May substitue any PEG. Starting at 6PM the night before your procedure drink 1 8oz glasses at your own pace until you complete half of the gallon. Finish 2nd half of the gallon 5 hours before your procedure. 4000 mL 5 Active bisacodyL (DULCOLAX) 5 mg EC tablet Take 2 tablets by mouth right before beginning bowel prep. See instructions provided by the office 2 tablet 5 Active Active Problems Problem Noted Date Diagnosed Date Better eye: total vision imp airment, lesser eye: total vision impairment 10/31/2008 Overview (05/24/2024): IMO update Insomnia 02/17/2008 Encounters Date Type Department Care Team Description 12/07/2024 Telephone Gastroenterology - [address] [address] Arianna Sanchez MD 11/02/2024 Telephone Gastroenterology - [address] [address] Arianna Sanchez MD from Last 3 Months Immunizations Name Administration Dates Next Due Pfizer SARS-CoV-2 COVID-19, mRNA, LNP-S, preservative free 09/22/2020,09/01/2020 Tdap Tetanus diptheria acell ular pertussis (Boostrix; Adacel) 7yo and older 02/17/2008 Surgical History Surgery Date Site/Laterality Comments SECTION PROCEDURE: LA DELIVERY ONLY SECTION PROCEDURE: SECTION UMBILICAL HERNIA REPAIR PROCEDURE:UMBILICAL HERNIA REPAIR UPPER GASTROINTESTINAL ENDOSCOPY PROCEDURE:UPPER GASTROINTESTINAL ENDOSCOPY GASTRIC RESTRICTION SURGERY 04/13/2020 N/A PROCEDURE:GASTRIC RESTRICTION SURGERY;COMMENT:Procedure: LAPAROSCOPIC SLEEVE GASTRECTOMY; Surgeon: Oz Comer MD; Location: [facility] MAIN OPERATING ROOM; Service: Bariatrics; Laterality: N/A; UPPER GASTROINTESTINAL ENDOSCOPY 04/13/2020 N/A PROCEDURE:UPPER GASTROINTESTINAL ENDOSCOPY;COMMENT:Procedure: UPPER ENDOSCOPY-EGD; Surgeon: Oz Comer MD; Location: [facility] MAIN OPERATING ROOM; Service: Bariatrics; Laterality: N/A; Medical History Medical History Date Comments Asthma DX:Asthma Migraines DX:Migraines Urinary tract infection DX:Urina ry tract infection Migraine headache DX:Migraine he adache Seizures (CMS/HCC V24, CMS/HCC V28) DX:Seizures (HCC);COMMENT:2005 seizure,none since Visual impairment DX:Visual impa irment;COMMENT:galsses Sleep apnea DX:Sleep apnea Insomnia DX:Insomnia Pseudotumor cerebri Shingles Family History Medical History Relation Name Comments Cirrhosis Father Diabetes Mother Heart disease Mother Kidney disease Mother Relation Name Status Comments Father alcohol Maternal Grandfather Maternal Grandmother Mother Alive htn, dm, migrai kemar Paternal Grandfather Paternal Grandmother Sister Alive Social History Tobacco Use Types Packs/Day Years Used Date Smoking Tobacco: Never Smokeless Tobacco: Never Alcohol Use Standard Drinks/Week Comments No 0 (1 standard drink = 0.6 oz pur e alcohol) Housing Instability Answer Date Recorde d Are you worried that in the next 2 months you may not have stable housing? Patient declined 08/09/2024 Food Access & Nutrition Answer Date Rec orded Do you have access to a vari ety of food including fruits and vegetables? Patient declined 08/09/2024 Access to Healthcare Answer Date Record ed Within the last 3 months, ho aime many times did you visit the emergency department for your medical care? 2 08/09/2024 Health Literacy Answer Date Recorded How often do you need to hav e someone help you when you read instructions, pamphlets, or other written material from your doctor or pharmacy? Patient declined 08/09/2024 Caregiver: How often do you need to have someone help you when you read instructions, pamphlets, or other written material from your doctor or pharmacy? Not on file 025 Financial Risk Answer Date Recorded How hard is it for you to pa y for the very basics like food, housing, medical care, and air conditioning / heating? Patient declined 08/09/2024 Transportation Answer Date Recorded Has the lack of transportati on kept you from meetings, work, or from getting things needed for daily living? Patient declined 08/09/2024 Has the lack of transportati on kept you from medical appointments or from getting medications? Patient declined 08/09/2024 Social Isolation Answer Date Recorded How often do you feel lonely or isolated from those around you? Patient declined 08/09/2024 Food Risk Answer Date Recorded Within the past 12 months we worried whether our food would run out before we got money to buy more. Patient declined 025 Within the past 12 months th e food we bought just didn't last and we didn't have money to get more. Patient declined 07/18 Dependent Care Answer Date Recorded Do you need help finding or paying for care for your loved ones. For example, child development specialist or elderly care for an older adult? Patient declined 08/09/2024 Education Answer Date Recorded Do you think completing more education or training, like finishing a GED, going to college, or learning a trade, would be helpful for you? N/A 08/09/2024 Employment and Income Answer Date Recor ded During the last four weeks, have you been actively looking for work? Patient declined 08/09/2024 Living Situation Answer Date Recorded What is your living situation? 0 08/09/2024 Comments No Sex and Gender Information Value Date Recorded Sex Assigned at Female 08/12/2024 4:30 PM EST Legal Sex Female 10:22 AM EST Gender Identity Female 08/12/2024 4:30 PM EST Sexual Orientation Straight 08/12/2024 4: 30 PM EST Obstetrics History Para Term AB IAB SAB Ectopic Multiple Livin g Live Births 3 1 1 2 2 1 Date Outcome GA Total Labor Labor/2nd/3rd Weight Sex Type Anes PTL Jessi A1 A5 Name Clin IAB IAB 002 Term M CS-LTr anv Last Filed Vital Signs Vital Sign Reading Time Taken Comments Blood Pressure 110/70 08/10/2024 1:58 PM EST Pulse 83 08/10/2024 1:58 PM EST Temperature - - Respiratory Rate 16 08/10/2024 1:58 PM EST Oxygen Saturation - - Inhaled Oxygen Concentration - - Weight 70.8 kg (156 lb) 12/09/2024 1:00 PM EDT Height 165.1 cm (5' 5 ) 12/09/2024 1:00 PM EDT Body Mass Index 25.96 12/09/2024 1:00 PM EDT Plan of Treatment Upcoming Encounters Date Type Department Care Team (Late st Contact Info) Description 02/11/2025 2:00 PM EDT Appointment [facility] Endoscopy [address] [place] [id number] Arianna Sanchez MD [address] [address] Health Maintenance Due Date Last Done Comments Hepatitis B Vaccines (1 of 3 - 19+ 3-dose series) 1994 Cervical Cancer Screening: P ap Smear 02/08/1996 DTaP,Tdap,and Td Vaccines (2 - Td or Tdap) 02/16/2018 02/17/2008 Cholesterol Screening (Lipid Panel) 05/14/2022 02/19/2008 Colorectal Cancer Screening: Colonoscopy 05/14/2022 HIV Screening 05/14/2022 Hepatitis C Screening 05/14/2022 Medicare Annual Wellness Visit 05/14/2022 COVID-19 Vaccine (3 - 2023-2 5 season) 2024 09/22/2020, 09/01/2020 Influenza Vaccine (#1) 2025 05/09/2012 Depression Screening 08/09/2025 08/09/2024 Social Influencers of Health Screening 08/09/2025 08/09/2024 Breast Cancer Screening 08/18/2026 08/18/2024 Pneumococcal Vaccine: Pediatrics (0 to 5 Years) and At-Risk Patients (6 to 49 Years) Aged Out 05/09/2012 No longer eligible b ased on patient's age to complete this topic HIB Vaccines Aged Out No longer eligi ble based on patient's age to complete this topic HPV Vaccines Aged Out No longer eligi ble based on patient's age to complete this topic Hepatitis A Vaccines Aged Out No long er eligible based on patient's age to complete this topic IPV Vaccines Aged Out No longer eligi ble based on patient's age to complete this topic MMR Vaccines Aged Out No longer eligi ble based on patient's age to complete this topic Meningococcal ACWY Vaccine Aged Out N o longer eligible based on patient's age to complete this topic Meningococcal B Vaccine Aged Out No l onger eligible based on patient's age to complete this topic RSV Immunization Patients Under 20 months Aged Out No longer eligible b ased on patient's age to complete this topic Varicella Vaccines Aged Out No longer eligible based on patient's age to complete this topic Procedures Procedure Name Priority Date/Time Associated Diagnosis Comments MG MAMMO DIGITAL SCREENING W DAWIT BILAT Routine 08/18/2024 11:14 AM EST Other screening mammogram LIPID PANEL Routine 02/19/2008 from Last 3 Months or Most Recently Relevant to Health Maintenance Results * MG Mammo Digital Screening w Dawit bilat (08/18/2024 11:14 AM EST) Anatomical Region Laterality Modality Breast Bilateral Mammography 08/18/2024 4:33 PM EST Impressions 08/18/2024 4:39 PM EST No mammographic evidence of malignancy. A negative mammogram in the presence of a clinically suspicious palpable abnormality does not preclude the possibility of malignancy or alter the indications for biopsy. ASSESSMENT: BI-RADS 1: NEGATIVE RECOMMENDATION(S): 1: Routine screening mammogram BILATERAL in 1 year. [facility] location[facility] [address], [address] -------- FINAL REPORT -------- Dictated By: Reji Duran Dictated Date: 08/18/2024 16:33 ET Assigned Physician: Reji Duran Reviewed and Electronically Signed By: Reji Duran Signed Date: 08/18/2024 16:39 ET Workstation ID: [id number] Transcribed By: Self Edit Transcribed Date: 08/18/2024 16:33 ET Narrative 08/18/2024 4:39 PM EST EXAM: SCREENING MAMMOGRAPHY, BILATERAL HISTORY: SCREENING. Technologist indicate a scar in the 11 o'clock position right breast. COMPARISON: Initial exam TECHNIQUE: Synthesized CC and MLO projections of each breast. Tomosynthesis of each breast in the CC and MLO projections. ADDITIONAL IMAGING: Craniocaudal view of the right breast exaggerated toward the axilla using Tomosynthesis. Computer-aided detection was employed with the [employer] AI 3-D. TISSUE DENSITY: The breasts are heterogeneously dense, which may obscure small masses. (BI-RADS category C) FINDINGS: RIGHT BREAST: No suspicious mass. No suspicious calcification. No distortion. No additional suspicious right breast findings LEFT BREAST: No suspicious mass. No suspicious calcification. No distortion. No additional suspicious left breast findings Procedure Note Reji Duran MD - 08/18/2024 EXAM: SCREENING MAMMOGRAPHY, BILATERAL HISTORY: SCREENING. Technologist indicate a scar in the 11 o'clockposition right breast. COMPARISON: Initial exam TECHNIQUE: Synthesized CC and MLO projections of each breast.Tomosynthesis of each breast in the CC and MLO projections. ADDITIONAL IMAGING: Craniocaudal view of the right breast exaggeratedtoward the axilla using Tomosynthesis. Computer-aided detection was employed with the [employer] AI 3-D. TISSUE DENSITY: The breasts are heterogeneously dense, which may obscuresmall masses. (BI-RADS category C) FINDINGS: RIGHT BREAST: No suspicious mass. No suspicious calcification. No distortion. Noadditional suspicious right breast findings LEFT BREAST: No suspicious mass. No suspicious calcification. No distortion. Noadditional suspicious left breast findings IMPRESSION: No mammographic evidence of malignancy. A negative mammogram in the presence of a clinically suspicious palpableabnormality does not preclude the possibility of malignancy or alter theindications for biopsy. ASSESSMENT: BI-RADS 1: NEGATIVE RECOMMENDATION(S): 1: Routine screening mammogram BILATERAL in 1 year. [facility] location[facility] at [address], [address] -------- FINAL REPORT -------- Dictated By: Reji Duran Dictated Date: 08/18/2024 16:33 ET Assigned Physician: Reji Duran Reviewed and Electronically Signed By: Reji Duran Signed Date: 08/18/2024 16:39 ET Workstation ID: [id number] Transcribed By: Self Edit Transcribed Date: 08/18/2024 16:33 ET Thao Oviedo CNM IMG BI PROCEDURES Final Resu lt * (ABNORMAL) Lipid panel (02/19/2008) LDL/HDL Ratio 3 0 - 4 Triglycerides 62 0 - 150 mg/dL Cholesterol 189 0 - 200 mg/dL HDL 66 >=40 mg/dL LDL Cholesterol 111(A) 0 - 100 mg/dL Blood Venous blood specimen / Unknown Historical Provider LAB BLOOD ORDERABLES Nan l Result from Last 3 Months or Most Recently Relevant to Health Maintenance Insurance [employer] MEDICARE Care Teams Medication Nurse Relationship Specialty Start Date End Date Samantha Ramirez DO [address] [address] PCP - General Internal Medicine 08/12/24
--- OUTSIDE RECORDS SUMMARY | 2024-12-23 15:39 | XMS_ITS | Clinical Summary ---
Author Organization [facility] Address [address] [facility] [address] [place] [address] Phone Care Team Providers Care Program Management Intern Name Role Phone Consuelo Sousa MD Primary Care Provider [phone] Allergies No known active allergies Medications levETIRAcetam (KEPPRA) 1000 MG tablet Take 1,000 mg by mouth 1 (one) time each day Active melatonin 3 MG tablet Take 3 mg by mouth every night Active senna (SENOKOT) 8.6 MG tablet Take 2 tablets by mouth 1 (one) time each day Active acetaminophen (TYLENOL) 325 MG tablet Take 975 mg by mouth every 6 (six) to 8 (eight) hours if needed for mild pain Active gabapentin (NEURONTIN) 100 MG capsule Take 100 mg by mouth 3 (three) times a day Active pantoprazole (PROTONIX) 40 MG EC tablet Take 40 mg by mouth 1 (one) time each day before breakfast Do not crush, chew, or split. Active Cholecalciferol 100 MCG (4000 UT) tablet Take 1 tablet by mouth 1 (one) time each day Active docusate sodium (COLACE) 100 MG capsule Take 100 mg by mouth 2 (two) times a day Active folic acid (FOLVITE) 1 MG tablet Take 1 mg by mouth 1 (one) time each day Active Multiple Vitamin (multivitamin) capsule Take 1 capsule by mouth 1 (one) time each day Active predniSONE 5 MG tablet Take 20 mg by mouth every 3rd (third) day Active topiramate (TOPAMAX) 200 MG tablet Take 200 mg by mouth in the morning and 200 mg in the evening and 200 mg before bedtime. Active bacitracin 500 UNIT/GM ointment Apply topically 1 (one) time each day Active epoetin brenda (EPOGEN,PROCRIT ) 64328 UNIT/ML injectionIndica tions:Anemia due to Renal Failure Inject 20,000 Units under the skin every 14 (fourteen) days Active sodium chloride 0.9 % nebulizer solution Take 10 mL by nebulization if needed for wheezing Active HEPARIN SODIUM, BOVINE, IJ Inject as directed Active HYDROmorphone (DILAUDID) 2 MG tablet Take 2 mg by mouth every 4 (four) hours if needed for moderate pain Active ondansetron (ZOFRAN) 4 MG tablet Take 4 mg by mouth every 8 (eight) hours if needed for nausea or vomiting Active albuterol (2.5 MG/3ML) 0.083% nebulizer solution Take 2.5 mg by nebulization every 6 (six) hours if needed for wheezing Active levoFLOXacin (LEVAQUIN) 500 MG tablet Take 3,000 mg by mouth 1 (one) time each day 2 Active Active Problems Problem Noted Date Diagnosed Date Chronic kidney disease 12/11/2021 Fatigue 12/11/2021 Gangrene of toe 12/11/2021 Gangrene, not elsewhere classified 12/11/2021 Headache 12/11/2021 Dependence on renal dialysis 04/19/2021 End stage renal disease 04/19/2021 Acute nontraumatic kidney injury 03/24/2021 Hyperkalemia 03/24/2021 Acute nontraumatic kidney injury 02/17/2021 Resolved Problems Problem Noted Date Diagnosed Date Resolved Date 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 Arterial thrombosis 03/24/2021 04/20/20 21 Cyst of left ovary 03/24/2021 Gastrointestinal hemorrhage 03/24/2021 04/20/2021 Hematemesis 03/24/2021 04/20/2021 Hemolytic anemia 03/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 04/20/2021 Hemorrhoid 03/24/2021 04/20/2021 Migraine 03/24/2021 04/20/2021 Insomnia 03/24/2021 04/20/2021 Leukocytosis 03/24/2021 04/20/2021 Metabolic encephalopathy 03/24/202110/2020 Paraparesis 03/24/2021 04/20/2021 Pneumonia 03/24/2021 04/20/2021 Seizure disorder 03/24/2021 04/20/2021 Umbilical hernia 03/24/2021 04/20/2021 Vitamin deficiency 03/24/2021 Shock 02/18/2021 04/20/2021 Obesity 01/25/2020 04/20/2021 Immunizations Immunization Administration Dates Next Due Pfizer SARS-COV-2 09/22/2020,09/01/2020 Pneumococcal Polysaccharide 05/09/2012 Family History Medical History Relation Comments Kidney disease Maternal Grandmother Diabetes Mother Hypertension Mother Diabetes Mother's Sister Relation Status Comments Maternal Grandmother Mother Alive Mother's Sister Social History Tobacco Use Types Packs/Day Years Used Date Smoking Tobacco: Never Smokeless Tobacco: Never Tobacco Cessation:Counseling Given: Not Answered Alcohol Use Standard Drinks/Week Comments Never 0 (1 standard drink = 0.6 oz pur e alcohol) Comments Unknown Sex and Gender Information Value Date Recorded Sex Assigned at Not on file Legal Sex Female 12:13 PM EDT Gender Identity Not on file Sexual Orientation Not on file Last Filed Vital Signs Vital Sign Reading Time Taken Comments Blood Pressure 110/80 08/01/2022 12:50 PM EST Pulse 100 08/01/2022 12:50 PM EST Temperature - - Respiratory Rate - - Oxygen Saturation 98% 05/28/2021 1:31 PM EST Inhaled Oxygen Concentration - - Weight 100 kg (220 lb 6.4 oz) 08/01/2022 12:50 P M EST Height - - Body Mass Index - - Plan of Treatment Health Maintenance Due Date Last Done Comments Hepatitis B Vaccine (1 of 3 - 19+ 3-dose series) 02/07 Pneumococcal Vaccine: Peds ( 0 to 5 Years) and At-Risk Patients (6 to 49 Years) (2 of 2 - PCV) 05/09/2013 05/09/2012 Colorectal Cancer Screening: Annual FOBT 02/08/2024 Colorectal Cancer Screening: Colonoscopy 02/08/2024 Colorectal Cancer Screening: Sigmoidoscopy 02/08/2024 Influenza Vaccine (#1) 2025 Insurance Medicaid [place] Medicaid [place] Care Teams Program Management Intern Relationship Specialty Start Date End Date Consuelo Sousa MD [address] PCP - General Internal Medicine 12/11/21
--- NOTE | 2024-12-23 16:15 | HO.NEPHOV ---
Vital Signs 12/23/24 16:16 Height 5 ft 5 in Weight 163 lb 8 oz BMI 27.2 BP 110/80 Blood Pressure Location Lt brachial Position Sitting Intake Visit Reasons: FU-Conf Search Lead Required: No Accompanied by: Mother Allergies No Known Allergies Allergy (Verified 12/23/24 16:16) HPI Comments Details: Dori is a 49-year-old female with a history of TONI following ATN needing renal replacement therapy. This visit was by [employer] [facility] [employer] as she has COVID. Her last hemodialysis was last week of March 2021. She has been having headaches/migraine and has seen neurologist with multiple medication adjustments and minimal improvement. She was also thought to have pseudotumor cerebri and was on Diamox briefly. Her foot wounds have healed. She denies chest pain, shortness of breath, vomiting, orthostatic symptoms, pedal edema or urinary symptoms. She avoids nonsteroidal anti-inflammatories and maintains good hydration. Her last serum creatinine settled to baseline now ON LICENSE OF [facility] Medical History (Updated 02/26/24 @ 14:40 by Esau Vaughn MD) History of hemodialysis Acute kidney injury Family History Mother Diabetes Hypertension Social History Alcohol intake: never Patient Tobacco Use Status: Never used Tobacco Review of Systems Const All systems reviewed & are unremarkable except as noted in HPI and below Physical Exam Vital Signs: Last Vital Signs BP 110/80 12/23/24 16:16 BMI result Body Mass Index 27.2 Const General: comfortable and no acute distress Orientation/consciousness: patient oriented x3 HEENT Head: Yes normocephalic Mouth: Normal oral and palatal mucosa present Eyes EOM: EOMs intact bilaterally Neck Neck: Yes supple Resp Auscultation: clear to auscultation bilaterally Cardio Jugular venous distension: no JVD Rate: regular rate GI Palpation (GI): Soft to palpation Auscultation: normal bowel sounds General: Yes no CVA tenderness Back/Spine/Pelvis Back: no CVA tenderness Skin General skin exam: no rashes or lesions noted Neuro General: patient oriented x3 and moves all extremities Extrem General: Yes no pedal edema Assessment & Plan Assessment & Plan (1) History of hemodialysis: Code(s): Z92.89 - Personal history of other medical treatment Category: Medical Plan Dori has history of tubular injury due to sepsis needing renal replacement therapy for some time. She recovered her renal functions and came off hemodialysis in March 2021. She had renal biopsy at that time which showed ATN. She maintains good hydration. She avoids nonsteroidal anti-inflammatories. She has not a diabetic. She has no renal dietary restrictions. I did not make any medication changes today but follow-up lab work. She will be following up with me in one year for continued care Orders: Orders Protein Creatinine Ratio, Ur 1 Year Z92.89 - Personal history of other medical treatment Blood Urea Nitrogen 1 Year Z92.89 - Personal history of other medical treatment Electrolytes 1 Year Z92.89 - Personal history of other medical treatment Creatinine 1 Year Z92.89 - Personal history of other medical treatment Coding Level of Care Code Est Pt Level 4 (17989) Diagnoses History of hemodialysis Z.89
[2024-12-23 16:16] VITALS: BP 110/80; BMI 27.2
== END 2024-12-23 16:58 | disposition home or self-care (01) ==
LOC: HO.HKAS 15:35
PROVIDERS: PCP Internal Medicine; Visit Provider Internal Medicine Nephrology
DX: Z92.89 Personal history of other medical treatment (principal)
CPT/HCPCS: 99214

== ENCOUNTER → 2024-12-23 15:34 | Outpatient (BNVA) | payer MEDICARE, SELFPAY | PROVIDERS: PCP Internal Medicine; Visit Provider Internal Medicine Nephrology | DX: Z92.89 Personal history of other medical treatment (principal) | CPT/HCPCS: 99212 ==